=== PATIENT | male | born 1965 | race African-American/Black ===

== ENCOUNTER 2020-04-20 20:00 | Emergency (ER) | payer OTHER ==
[~2020-04-20] VITALS: Ht 193 cm; Wt 124.7 kg
[~2020-04-20 20:00] MED LIST: ATENOLOL25 MG ORAL; BENAZEPRIL HCL10 MG ORAL; INDOMETHACIN75 MG ORAL; NORVASC10 MG ORAL
[2020-04-20 20:20] VITALS: BP 159/89
--- NOTE | 2020-04-20 20:20 | NUR ---
ED Nurse Note: Pt walked into ED for c/o R ear ache. Pt also reports feeling a pressure sensation from possible wax build up. Pt is aaox4, breathing is normal and unlabored. NAD. No cough, SOB or fever.
--- NOTE | 2020-04-20 20:25 | Emergency Room Report ---
History of Present Illness General Chief Complaint: Earache Source: Patient Present Illness HPI 55-year-old male with no significant medical history here complaining of fullness and pressure in the right ear x1 day. Denies any pain and I asked him multiple times if he elicits any pain upon palpation of the ear and denies any pain at this time. Denies vertigo, dizziness, ear discharge, fever chills, sore throat. Reports that he usually has a lot of wax inside his ears. Denies any facial numbness. Has not taken medication for symptom relief. Allergies: Coded Allergies: No Known Allergies (Unverified , 11/23/14) COVID-19 Screening Contact w/high risk pt: No Recent Travel to affected area: No Experienced COVID-19 symptoms?: No COVID-19 Testing performed [employer]: No Patient History Past Medical History: see triage record Past Surgical History: none Pertinent Family History: none Immunizations: UTD Reviewed Nursing Documentation: PMH: Agreed; PSxH: Agreed Nursing Documentation-PMH Hx Hypertension: Yes Review of Systems All Other Systems: negative except mentioned in HPI Physical Exam Vital Signs Date Time Temp Pulse Resp B/P (MAP) Pulse Ox O2 Delivery O2 Flow Rate FiO2 04/20/20 20:10 98.6 98 19 159/89 (112) 100 Room Air Sp02 EP Interpretation: reviewed, normal General Appearance: no apparent distress, alert, GCS 15, non-toxic Head: normocephalic, atraumatic Eyes: bilateral eye normal inspection, bilateral eye PERRL ENT: hearing grossly normal, normal pharynx, no angioedema, normal voice, other - Cerumen impaction, tragus is not tender to palpation, was unable to visualize TM Neck: full range of motion, supple/symm/no masses Respiratory: chest non-tender, lungs clear, normal breath sounds, speaking full sentences Cardiovascular #1: regular rate, rhythm, no edema Gastrointestinal: normal bowel sounds, non tender, soft, non-distended, no guarding, no rebound Rectal: deferred Genitourinary: no CVA tenderness Musculoskeletal: back normal Neurologic: alert, motor strength/tone normal, oriented x3, sensory intact, responsive, speech normal Psychiatric: judgement/insight normal, memory normal, mood/affect normal, no suicidal/homicidal ideation Skin: no rash Lymphatic: no adenopathy Medical Decision Making PA Attestation All diagnoses and treatment plans were reviewed and discussed with my supervising physician Dr. Miller Diagnostic Impression: Primary Impression: Cerumen impaction Additional Impression: Eustachian tube dysfunction ER Course 55-year-old male with no significant medical history here complaining of fullness and pressure in the right ear x1 day. Denies any pain and I asked him multiple times if he elicits any pain upon palpation of the ear and denies any pain at this time. Denies vertigo, dizziness, ear discharge, fever chills, sore throat. Reports that he usually has a lot of wax inside his ears. Denies any facial numbness. Has not taken medication for symptom relief. Ddx considered but are not limited to: Otitis media, Otitis external, mastoiditis, cerumen impaction, Eustachian tube dysfunction, positional vertigo Vital signs: are WNL, pt. is afebrile H&PE are most consistent with: Cerumen impaction, Eustachian tube dysfunction ORDERS: Debrox, Claritin-D, September. Patient does not elicit any pain however asked him to stop using the Debrox if any ear pain ED INTERVENTIONS: None required at this time. DISCHARGE: At this time pt. is stable for d/c to home. Will provide printed patient care instructions, and any necessary prescriptions. Care plan and follow up instructions have been discussed with the patient prior to discharge. Patient take medication as directed, follow-up primary care provider, if worsening symptoms return to the emergency room Last Vital Signs Date Time Temp Pulse Resp B/P (MAP) Pulse Ox O2 Delivery O2 Flow Rate FiO2 04/20/20 20:10 98.6 98 19 159/89 (112) 100 Room Air Disposition: HOME, SELF-CARE Condition: Stable Scripts Loratadine/Pseudoephedrine (CLARITIN-D 12 HOUR TABLET) 1 Each Tab.er.12h 1 TAB ORAL EVERY 12 HOURS, #14 TAB Prov: Bruno Borrego 04/20/20 Carbamide Peroxide (DEBROX) 15 Ml Drops 10 DROP RIGHT EAR TWICE A DAY for 4 Days, #15 ML 0 Refills Prov: Bruno Borrego 04/20/20 Patient Instructions: Cerumen Impaction Additional Instructions: Take medication as directed, follow-up with your primary doctor for referral to ENT, if any ear pain avoid using the Debrox, at this time since you are not losing any pain no antibiotics are needed. Avoid going to high elevation and swimming. If worsening symptoms return to the emergency room. Bruno Borrego Apr 20, 2020 20:25
[2020-04-20] MEDS ORDERED: DEBROX15 M1 RIGHT EAR (20:26)
[2020-04-20] MEDS ORDERED: CLARITIN-D 121 EAC1 ORAL (20:26)
--- NOTE | 2020-04-20 20:40 | NUR ---
ER DISCHARGE NOTE: Patient is cleared to be discharged per ERMD, pt is aox4, on room air, with stable vital signs. pt was given dc and prescription instructions, pt was able to verbalize understanding, pt id band removed. pt is able to ambulate with steady gait. pt took all belongings.
== END 2020-04-20 20:40 | disposition home or self-care (01) ==
LOC: EMR 20:35
DX: H61.20 Impacted cerumen, unspecified ear (principal); H69.90 Unspecified Eustachian tube disorder, unspecified ear; I10 Essential (primary) hypertension
CPT/HCPCS: 99282